=== PATIENT | male | born 1955 | race Caucasian/White ===

== ENCOUNTER 2018-12-11 14:13 | Day surgery (SDC) | payer BC ==
[~2018-12-11] VITALS: Ht 180.3 cm; Wt 92.7 kg
[2018-12-11 14:43] VITALS: BP 139/78; PULSE 77; TEMP 98.5
[2018-12-11] MEDS ORDERED: PERCOCET 325 MG1 TA2 PO (14:45)
--- NOTE | 2018-12-11 14:46 | NUR ---
TO RM 1 AT 1420 VIA PRIVATE CAR FROM [facility]. INT RIGHT HAND FLUSHED AND FLUIDS STARTED
[2018-12-11 15:56] VITALS: TEMP 98.7
[2018-12-11 16:00] VITALS: BP 135/85; PULSE 94
--- NOTE | 2018-12-11 16:00 | NUR ---
TO RM 1 PER CART FROM PACU. ALERT ORIENTED X3, TALKING WITH STAFF AND . DENIES PAIN OR DISCOMFORT AT THIS TIME. DENIES NAUSEA. UPON RETURNING TO UP TO BATHROOM AND VOIDED.
[2018-12-11 16:15] VITALS: BP 136/75; PULSE 87
--- NOTE | 2018-12-11 16:15 | NUR ---
RECEIVED MUFFIN AND ARLIN. PUDDING.
[2018-12-11 16:30] VITALS: BP 119/70; PULSE 86
--- NOTE | 2018-12-11 16:30 | NUR ---
ATE 100% AND RECEIVED 2ND MUFFIN.
--- NOTE | 2018-12-11 16:35 | NUR ---
ATE 2ND MUFFIN AND TOLERATED WELL. RECEIVED DISCHARGE INSTRUCTIONS AND VERBALIZED UNDERSTANDING. DISCONTINUED IV AND INT- COVERED WITH COTTON BALL AND COBAN.
--- NOTE | 2018-12-11 16:45 | NUR ---
DISCHARGED PER WC BY NURSING STAFF TO PRIVATE CAR IN CARE OF -[facility]
== END 2018-12-11 17:04 | disposition home or self-care (01) ==
LOC: SDCO 14:13
DX: N20.1 Calculus of ureter (principal); M19.90 Unspecified osteoarthritis, unspecified site; E23.0 Hypopituitarism; Z85.46 Personal history of malignant neoplasm of prostate; Z80.9 Family history of malignant neoplasm, unspecified
CPT/HCPCS: C1769; C2617; J0690; J1885; J2405; J2704; J3010; J7120

== ENCOUNTER 2024-02-01 13:35 | Day surgery (SDC) | payer MEDICARE, BC ==
[~2024-02-01] VITALS: Ht 177.8 cm; Wt 97.5 kg
[~2024-02-01 13:35] MED LIST: PERCOCET 325 MG1 TA2 PO
[2024-02-01] MEDS ORDERED: LR 1,000 ML IV ONE (13:45)
[2024-02-01] MEDS ORDERED: FLOMAX 0.40.4 MG/CAP PO (13:51)
[2024-02-01] MEDS ORDERED: MOBIC 7.5MG7.5 MG PO (13:51)
[2024-02-01] MEDS ORDERED: COMPLETE MULTI1 TAB PO (13:52)
[2024-02-01] MEDS ORDERED: UNISOM25 MG PO (13:53)
[2024-02-01 14:01] VITALS: BP 135/65; PULSE 67; TEMP 98.2
[2024-02-01] MEDS ORDERED: Lidocaine PF 2% (20 MG/ML) 5 ML VIAL ONE (16:40)
[2024-02-01] MEDS ORDERED: Ondansetron 4 MG/2 ML VIAL ONE (16:40)
[2024-02-01] MEDS ORDERED: Lidocaine 2% (20 MG/ML) 20 ML UROJET UR ONE ×2 (17:20→17:42)
[2024-02-01] MEDS ORDERED: Ketorolac 30 MG/ML VIAL ONE (17:23)
[2024-02-01] MEDS ORDERED: fentaNYL 50 MCG/ML 1 ML SYRINGE/VIAL [PACU/SDC ONLY] IV PRN (17:45)
[2024-02-01] MEDS ORDERED: hydrALAZINE 20 MG/ML 1 ML VIAL IV PRN (17:45)
[2024-02-01] MEDS ORDERED: Meperidine 50 MG/ML 1 ML VIAL IV PRN (17:45)
[2024-02-01] MEDS ORDERED: HYDROmorphone 1 MG/1 ML SYRINGE [PACU/SDC ONLY] IV PRN (17:45)
[2024-02-01] MEDS ORDERED: droPERidol 2.5 MG/ML 2 ML VIAL IV PRN (17:45)
[2024-02-01] MEDS ORDERED: Ondansetron 4 MG/2 ML VIAL IV PRN (17:45)
[2024-02-01] MEDS ORDERED: Hyoscyamine 0.125 MG Sublingual TAB SL PRN (18:00)
[2024-02-01] MEDS ORDERED: Ketorolac 15 MG/ML VIAL IV PRN (18:00)
[2024-02-01] MEDS ORDERED: oxyCODONE/Acetaminophen 5-325 MG TAB PO PRN (18:00)
[2024-02-01 18:14] VITALS: TEMP 97.3
[2024-02-01 18:30] VITALS: BP 117/69; PULSE 76
[2024-02-01 18:45] VITALS: BP 115/73; PULSE 68
[2024-02-01 19:00] VITALS: BP 119/73; PULSE 64
[2024-02-01 19:15] VITALS: BP 116/85; PULSE 71
--- NOTE | 2024-02-01 19:49 | NUR ---
pt arrived to room 329 at 1825. post op vitals started and remained wnl. pt denied pain. pt tolerated food and liquid without issue. pt urinated without burning or difficulty. discharge instructions provided. pt education given. iv dc'd. f/u appt discussed. medications reviewed. pt denies questions or concerns. pt escorted out with belongings.
== END 2024-02-01 19:45 | disposition home or self-care (01) ==
LOC: CANPRESDC → SDCO 13:35 → SURG 19:00 → SDCO 19:45
DX: N20.2 Calculus of kidney with calculus of ureter (principal); G47.33 Obstructive sleep apnea (adult) (pediatric); C61 Malignant neoplasm of prostate
CPT/HCPCS: OP; C1769; C2617; J0690; J1885; J2405; J2704; J7120